=== PATIENT | female | born 1995 | race Caucasian/White ===

== ENCOUNTER 2021-06-12 08:05 | Outpatient (CLI) | payer OTHER | END 2021-06-12 08:06 | disposition home or self-care (01) | LOC: LAB 08:05 | PROVIDERS: ATTEND Emergency Medicine Pediatric Emergency Medicine | DX: Z03.818 Encounter for observation for suspected exposure to other biological agents ruled out (principal) ==

== ENCOUNTER 2021-06-25 13:35 | Outpatient (CLI) | payer OTHER | END 2021-06-25 13:45 | disposition home or self-care (01) | LOC: PPH VACUNA 13:35 | PROVIDERS: ATTEND Emergency Medicine Pediatric Emergency Medicine | DX: Z23 Encounter for immunization (principal) ==

== ENCOUNTER 2021-09-30 07:30 | Outpatient (CLI) | payer OTHER | END 2021-09-30 07:41 | disposition home or self-care (01) | LOC: SONOGRAMA 07:30 | PROVIDERS: ATTEND Internal Medicine Gastroenterology | DX: R10.13 Epigastric pain (principal); R11.0 Nausea; K62.5 Hemorrhage of anus and rectum; K59.09 Other constipation; R11.2 Nausea with vomiting, unspecified; Z80.0 Family history of malignant neoplasm of digestive organs ==

== ENCOUNTER 2021-10-07 06:20 | Outpatient (CLI) | payer OTHER | END 2021-10-07 06:21 | disposition home or self-care (01) | LOC: LAB 06:20 | PROVIDERS: ATTEND Internal Medicine Gastroenterology | DX: R10.13 Epigastric pain (principal); R12 Heartburn; R11.0 Nausea; K62.5 Hemorrhage of anus and rectum; K59.09 Other constipation; R11.2 Nausea with vomiting, unspecified; Z80.0 Family history of malignant neoplasm of digestive organs ==